=== PATIENT | female | born 1950 | race Caucasian/White ===

== ENCOUNTER 2019-11-19 12:55 | Inpatient (IN) | payer MEDICARE ==
[~2019-11-19] VITALS: Ht 160 cm; Wt 77.1 kg
[2019-11-19] MEDS ORDERED: SODIUM CHLORIDE 0.9% 1000ML 1,000 ML IV STA ×2 (13:04→13:59)
[2019-11-19] MEDS ORDERED: ONDANSETRON HCL INJ 2MG/ML 2ML 2 MG/ML VIAL IV STA (13:04)
[2019-11-19 13:31] LABS: BASOPHILS % 0.2 % (0.0-1.0); EOSINOPHILS % 0.1 % (0.0-6.0); HEMATOCRIT 39.6 % (34.2-44.1); HEMOGLOBIN 13.9 g/dL (12.0-16.0); LYMPHOCYTES # (AUTO) 0.7 (1.0-3.2); LYMPHOCYTES % 5.6 % (18.0-39.1); MEAN CORPUSCULAR HEMOGLOBIN 31.1 pg (28-32); MEAN CORPUSCULAR HGB CONC 35.1 g/dL (31-35); MEAN CORPUSCULAR VOLUME 88.6 fL (81-99); MONOCYTES # (AUTO) 1.1 (0.2-0.8); MONOCYTES % 8.9 % (4.4-11.3); NEUTROPHILS # (AUTO) 10.2 (2.1-6.9); NEUTROPHILS % 84.5 % (38.7-80.0); PLATELET COUNT 220 x10e3/uL (140-360); RED BLOOD COUNT 4.47 x10e6/uL (3.6-5.1); RED CELL DISTRIBUTION WIDTH 11.9 % (11.7-14.4)
[2019-11-19 13:52] LABS: ALBUMIN 3.6 g/dL (3.5-5.0); ALBUMIN/GLOBULIN RATIO 0.9 (0.8-2.0); ANION GAP 20.1 mmol/L (8-16); BILIRUBIN,URINE 2+ (NEGATIVE); CLARITY,URINE SL CLOUDY (CLEAR); COLOR,URINE YELLOW (YELLOW); CREATININE, SERUM 2.31 mg/dL (0.57-1.11); KETONES,URINE NEGATIVE (NEGATIVE); LEUKOCYTE ESTERASE ,URINE 1+ (NEGATIVE); NITRITE,URINE NEGATIVE (NEGATIVE); POTASSIUM 3.1 mmol/L (3.5-5.1); PROTEIN,URINE DIPSTICK 1+ (NEGATIVE); URINE UROBILINOGEN 1 mg/dL (0.2 - 1)
[2019-11-19 13:59] LABS: CREATINE KINASE MB 0.8 ng/mL (0-5.0)
[2019-11-19] MEDS ORDERED: POTASSIUM CHLORIDE 10MEQ/100ML 100 ML IV ONE (14:00)
[2019-11-19] MEDS ORDERED: MORPHINE SULFATE INJ 4 MG/ML INJ 1ML IV PRN (14:12)
[2019-11-19] MEDS ORDERED: MORPHINE SULFATE INJ 4 MG/ML INJ 1ML IV NR (14:15)
[2019-11-19] MEDS ORDERED: MORPHINE SULFATE 2 MG/ML SYR 1ML IV PRN (14:15)
[2019-11-19 14:29] LABS: AMORPHOUS SEDIMENT,URINE MODERATE (FEW); BACTERIA,URINE MODERATE /HPF; EPITHELIAL CELLS,URINE MANY /LPF; TRANSITIONAL EPI CELLS,URINE MODERATE
--- NOTE | 2019-11-19 14:59 | Diagnostic Imaging Report ---
EXAM: CT Abdomen and Pelvis WITHOUT contrast INDICATION: ^epigastric pain COMPARISON: None. TECHNIQUE: Abdomen and pelvis were scanned utilizing a multidetector helical scanner from the lung base to the pubic symphysis without administration of IV contrast. Absence of intravenous contrast decreases sensitivity for detection of focal lesions and vascular pathology. Coronal and sagittal reformations were obtained. Routine protocol was performed. IV CONTRAST: None ORAL CONTRAST: None COMPLICATIONS: None RADIATION DOSE: Total DLP: 447 mGy*cm Estimated effective dose: (DLP x 0.015 x size factor) mSv CTDIvol has been reviewed. It is below the limits set by the Radiation Protocol Committee (RPC). Dose modulation, iterative reconstruction, and/or weight based adjustment of the mA/kV was utilized to reduce the radiation dose to as low as reasonably achievable. FINDINGS: LINES and TUBES: None. LOWER THORAX: Unremarkable HEPATOBILIARY: The liver is enlarged and mildly decreased in density consistent with fatty infiltration. No focal hepatic lesions. No biliary ductal dilation. GALLBLADDER: The gallbladder is distended. There is a small amount of gas within the gallbladder lumen. The gallbladder wall is thickened and measures up to 7 mm in caliber. No identifiable pericholecystic fluid. Possible nitrogen-containing gallstones are present. SPLEEN: No splenomegaly. PANCREAS: No focal masses or ductal dilatation. ADRENALS: No adrenal nodules KIDNEYS/URETERS: No hydronephrosis. Small right renal exophytic low-density lesion, likely a cyst. No stones. GI TRACT: No abnormal distention, wall thickening, or evidence of bowel obstruction. Moderate sigmoid diverticulosis. Appendix is normal. PELVIC ORGANS/BLADDER: The urinary bladder is unremarkable. The uterus is surgically absent. LYMPH NODES: No lymphadenopathy. VESSELS: Scattered arterial calcifications. PERITONEUM / RETROPERITONEUM: No free air or fluid. BONES: No acute osseous abnormality. Multilevel thoracolumbar degenerative change. SOFT TISSUES: Unremarkable. IMPRESSION: Findings worrisome for acute cholecystitis. Surgical consultation is recommended. Right upper quadrant sonography may be obtained to evaluate for the presence of gallstones. Signed by: Prosper Yang MD on 11/19/2019 2:56 PM
[2019-11-19] MEDS ORDERED: POTASSIUM CHLORIDE 20 MEQ TAB CR PO STA (15:22)
--- OUTSIDE RECORDS SUMMARY | 2019-11-19 15:33 | XMS REPORT ---
Author Author [facility] Address Unknown Phone Unavailable Care Team Providers Care Conference Services Coordinator Name Role Phone JOSE ARMANDO NESBITT Unavailable Unavailable Problems This patient has no known problems. Allergies, Adverse Reactions, Alerts This patient has no known allergies or adverse reactions. Medications This patient has no known medications. Results Test Description Test Time Test Comments Text Results Atomic Results Result Comments CT ABDOMEN/PELVIS WO 2019-11-19 14:52:00 [facility] [address] [address] Patient Name: PEPE ELLISON MR #: [id number] : 1950 Age/Sex: 69/F Req #: [id number] Adm Physician: Ordered by: JOSE ARMANDO NESBITT DO Report #: [id number] Location: ER Room/Bed: Procedure: [id number] CT/CT ABDOMEN/PELVIS WO Exam Date: Exam Time: REPORT STATUS: Signed EXAM: CT Abdomen and Pelvis WITHOUT contrast INDICATION: epigastric pain COMPARISON: None. TECHNIQUE: Abdomen and pelvis were scanned utilizing a multidetector helical scanner from the lung base to the pubic symphysis without administration of IV contrast. Absence of intravenous contrast decreases sensitivity for detection of focal lesions and vascular pathology. Coronal and sagittal reformations were obtained. Routine protocol was performed. IV CONTRAST: None ORAL CONTRAST: None COMPLICATIONS: None RADIATION DOSE: Total DLP: 447 mGy*cm Estimated effective dose: (DLP x 0.015 x size factor) mSv CTDIvol has been reviewed. It is below the limits set by the Radiation Protocol Committee (RPC). Dose modulation, iterative reconstruction, and/or weight based adjustment of the mA/kV was utilized to reduce the radiation dose to as low as reasonably achievable. FINDINGS: LINES and TUBES: None. LOWER THORAX: Unremarkable HEPATOBILIARY: The liver is enlarged and mildly decreased in density consistent with fatty infiltration. No focal hepatic lesions. No biliary ductal dilation. GALLBLADDER: The gallbladder is distended. There is a small amount of gas within the gallbladder lumen. The gallbladder wall is thickened and measures up to 7 mm in caliber. No identifiable pericholecystic fluid. Possible nitrogen-containing gallstones are present. SPLEEN: No splenomegaly. PANCREAS: No focal masses or ductal dilatation. ADRENALS: No adrenal nodules KIDNEYS/URETERS: No hydronephrosis. Small right renal exophytic low-density lesion, likely a cyst. No stones. GI TRACT: No abnormal distention, wall thickening, or evidence of bowel obstruction. Moderate sigmoid diverticulosis. Appendix is normal. PELVIC ORGANS/BLADDER: The urinary bladder is unremarkable. The uterus is surgically absent. LYMPH NODES: No lymphadenopathy. VESSELS: Scattered arterial calcifications. PERITONEUM / RETROPERITONEUM: No free air or fluid. BONES: No acute osseous abnormality. Multilevel thoracolumbar degenerative change. SOFT TISSUES: Unremarkable. IMPRESSION: Findings worrisome for acute cholecystitis. Surgical consultation is recommended. Right upper quadrant sonography may be obtained to evaluate for the presence of gallstones. Signed by: Margaret Cohen MD on 11/19/2019 2:56 PM Dictated By: MARGARET COHEN MD [id number] Transcribed By: ZARIA on 11/19/19 [id number] COPY TO: JOSE ARMANDO NESBITT DO
[2019-11-19] MEDS: ONDANSETRON HCL INJ 2MG/ML 2ML 2 MG/ML VIAL IV PRN (15:43)
[2019-11-19] MEDS: SODIUM CHLORIDE 0.9% 1000ML 1,000 ML IV SCH ×2 (15:45→20:14)
[2019-11-19] MEDS ORDERED: GEMFIBROZIL600 MG PO (15:54)
[2019-11-19] MEDS ORDERED: METOPROLOL SUCC25 MG PO (15:54)
[2019-11-19] MEDS ORDERED: LISINOPRIL-HCT1 EACH (15:54)
[2019-11-19] MEDS ORDERED: VERAPAMIL SR180 MG PO (15:54)
[2019-11-19] MEDS ORDERED: ESIDRIX25 MG (15:54)
[2019-11-19 16:21] VITALS: BP 152/72
[2019-11-19 16:22] VITALS: BP 152/72
[2019-11-19 16:30] VITALS: BP 152/72
[2019-11-19] MEDS: PIPER-TAZ 3.375 GM 50 ML IV SCH (16:30)
--- NOTE | 2019-11-19 16:30 | NUR ---
Received patient from ER to room 288. Patient is in stable condition. Oriented to room and policies. Call light within reach. Bed in the lowest position.
[2019-11-19] MEDS ORDERED: METOPROLOL TARTRATE INJ 1 MG/ML VIAL IV PRN (18:30)
[2019-11-19] MEDS ORDERED: ACETAMINOPHEN 1000 MG/100 ML IV PRN (18:30)
[2019-11-19] MEDS: DIPHENHYDRAMINE HCL INJ 50 MG/ML VIAL IV PRN (18:37)
--- NOTE | 2019-11-19 19:14 | NUR ---
Bedside shift report given to oncoming nurse. Patient is resting in bed, no acute distress noted. Call light within reach. Bed in the lowest position.
--- NOTE | 2019-11-19 19:30 | NUR ---
Received bedside report from day nurse. Patient awake and resting in bed, no s/s of distress at this time. Bed locked and in low position, call light placed within reach. Instructed to call for assistance if needed, verbalized understanding. All safety measures in place. Will continue to monitor.
[2019-11-19 20:00] VITALS: BP 120/65
[2019-11-19 21:02] VITALS: BP 120/65
[2019-11-20] VITALS (8 sets, daily range): BP systolic 96–140; BP diastolic 57–69
[2019-11-20] MEDS: PIPER-TAZ 3.375 GM 50 ML IV SCH ×5 (00:13→23:43)
[2019-11-20] MEDS: DIPHENHYDRAMINE HCL INJ 50 MG/ML VIAL IV PRN (00:19)
--- NOTE | 2019-11-20 00:46 | NUR ---
Dr. Quinteros here to see patient. Asked if patient is okay to take PO meds with small sips of water. Patient states that she has not been able to keep anything down since Saturday. Per Dr. Quinteros, get clearance from attending physician.
[2019-11-20] MEDS: SODIUM CHLORIDE 0.9% 1000ML 1,000 ML IV SCH ×3 (04:35→23:13)
[2019-11-20 06:18] LABS: BASOPHILS % 0.2 % (0.0-1.0); EOSINOPHILS % 0.5 % (0.0-6.0); HEMATOCRIT 35.3 % (34.2-44.1); HEMOGLOBIN 11.9 g/dL (12.0-16.0); LYMPHOCYTES # (AUTO) 0.6 (1.0-3.2); LYMPHOCYTES % 6.8 % (18.0-39.1); MEAN CORPUSCULAR HEMOGLOBIN 30.5 pg (28-32); MEAN CORPUSCULAR HGB CONC 33.7 g/dL (31-35); MEAN CORPUSCULAR VOLUME 90.5 fL (81-99); MONOCYTES # (AUTO) 1.3 (0.2-0.8); MONOCYTES % 15.4 % (4.4-11.3); NEUTROPHILS # (AUTO) 6.2 (2.1-6.9); NEUTROPHILS % 76.2 % (38.7-80.0); PLATELET COUNT 185 x10e3/uL (140-360)
--- NOTE | 2019-11-20 06:47 | NUR ---
Bedside shift report given to oncoming nurse. Patient is resting in bed, no acute distress noted. Call light within reach. Bed in the lowest position.
[2019-11-20 06:49] LABS: ALBUMIN 2.8 g/dL (3.5-5.0); ALBUMIN/GLOBULIN RATIO 0.9 (0.8-2.0); ANION GAP 14.2 mmol/L (8-16); CALCIUM 8.9 mg/dL (8.4-10.2); CREATININE, SERUM 2.23 mg/dL (0.57-1.11); POTASSIUM 3.2 mmol/L (3.5-5.1)
[2019-11-20 06:51] LABS: CHOL/HDL RATIO 17.3 (3.0-3.6)
--- NOTE | 2019-11-20 07:07 | NUR ---
Bedside report given to day nurse. Patient awake and resting in bed, no s/s of distress at this time. Bed locked and in low position, call light placed within reach. All safety measures in place.
[2019-11-20 07:13] LABS: THYROID STIMULATING HORMONE 1.547 uIU/mL (0.350-4.940)
[2019-11-20] MEDS: FAMOTIDINE 20 MG/2 ML VIAL IV SCH ×2 (08:00→17:00)
--- NOTE | 2019-11-20 08:24 | NUR ---
Asked MAYELA Blanco if ok to give morning medications with sip of water. Per BUFFER NICKEL, give metoprolol only.
[2019-11-20] MEDS: VERAPAMIL HCL 180 MG TBER PO SCH (08:26)
--- NOTE | 2019-11-20 09:12 | Diagnostic Imaging Report ---
EXAM: Right upper quadrant abdominal ultrasound INDICATION: Pancreatitis COMPARISON: CT abdomen pelvis 11/19/2019 TECHNIQUE: Transverse and longitudinal images of the right upper quadrant abdomen were obtained FINDINGS: Liver: Size: 14.8 cm in the right midclavicular line, normal Appearance: Increased echogenicity, smooth contour Mass: No focal masses Gallbladder: Sludge and stones in the gallbladder. No gallbladder distension, pericholecystic fluid, wall thickening, or reported sonographic Mendoza's sign. Gallbladder wall measures 5 mm. Bile Ducts: Intrahepatic Ducts: No dilatation Extrahepatic Ducts: Common bile duct measures 5 mm Pancreas: Visualized portions of the pancreatic head, neck and proximal body are normal. Kidney: The right kidney measures 9.6 cm without evidence of hydronephrosis or stone. Vessels: Aorta: Visualized portions are normal Inferior Vena Cava: Visualized portions are normal Main Portal Vein: 0.8 cm, normal size with hepatopetal flow. Free Fluid: No ascites or pleural effusion IMPRESSION: Cholelithiasis and sludge in the gallbladder. No specific sonographic evidence of cholecystitis. Hepatic steatosis. Signed by: Herb Carrera MD on 11/20/2019 9:09 AM
[2019-11-20] MEDS: METOPROLOL SUCCINATE 25 MG TAB XL PO SCH ×2 (09:26→17:00)
--- NOTE | 2019-11-20 10:09 | Diagnostic Imaging Report ---
ADDENDUM #1 There is mild fullness of the right renal collecting system without a definite obstruction visualized. There is a slight bend at the ureteropelvic junction. This is incompletely evaluated. However, it was not present on the prior CT. Signed by: Leonardo Norris JR, MD on 11/20/2019 11:33 AM ORIGINAL REPORT TECHNIQUE: MRI of the abdomen and MRCP WITHOUT intravenous contrast. 3-D volume reconstructions were obtained to evaluate the biliary ductal system. INDICATION: ^gall stone pancreatitis ^Y. COMPARISON: CT from 11/20/2019. FINDINGS: ABSENCE OF INTRAVENOUS CONTRAST DECREASES SENSITIVITY FOR DETECTION OF FOCAL LESIONS AND VASCULAR PATHOLOGY. LOWER THORAX: Unremarkable. LIVER: Mild loss of signal in the liver on out of phase imaging. No focal hepatic lesions. BILIARY: There are several small layering gallstones in the gallbladder. The gallbladder is distended with a thickened wall. No biliary ductal dilatation or filling defect. The common bile duct measures 4 mm in diameter. SPLEEN: No splenomegaly. PANCREAS: No focal masses or ductal dilatation. There is some edema and the pancreas. ADRENALS: No adrenal nodules. KIDNEYS/URETERS: No hydronephrosis or solid mass lesions. A simple left renal cyst measures 1 cm. A right upper pole simple renal cyst measures 1.1 cm. No follow-up imaging is recommended. PERITONEUM/RETROPERITONEUM: Trace scattered ascites. LYMPH NODES: No lymphadenopathy. VESSELS: Unremarkable. GI TRACT: No distention or wall thickening. Diverticulum of the second portion of the duodenum. Mild diverticulosis of the sigmoid colon. BONES AND SOFT TISSUES: Unremarkable. IMPRESSION: 1. No choledocholithiasis. 2. The findings in the gallbladder are concerning for acute cholecystitis in the appropriate clinical setting. 3. The edema around the pancreas is concerning for acute interstitial edematous pancreatitis. Signed by: Leonardo Norris JR, MD on 11/20/2019 10:06 AM
[2019-11-20] MEDS ORDERED: POTASSIUM CHLORIDE 20MEQ/100ML 200 ML IV ONE (10:30)
[2019-11-20] MEDS ORDERED: POTASSIUM CHLORIDE 20 MEQ TAB CR PO ONE (10:50)
[2019-11-20] MEDS: ONDANSETRON HCL INJ 2MG/ML 2ML 2 MG/ML VIAL IV PRN (13:53)
[2019-11-20] MEDS: HYDROMORPHONE 1MG/1ML INJ IV PRN (13:53)
--- NOTE | 2019-11-20 19:08 | NUR ---
Bedside shift report given to oncoming nurse. Patient is resting in bed. No acute distress noted, denies pain at this time. Call light within reach. Bed in the lowest position.
--- NOTE | 2019-11-20 19:24 | NUR ---
Received bedside report from day nurse. Patient awake and resting in bed, no s/s of distress at this time. All safety measures in place. Will continue to monitor.
--- NOTE | 2019-11-20 21:24 | Consultation ---
DATE OF CONSULTATION: 11/20/2019 PREOPERATIVE DIAGNOSIS: Abdominal pain. HISTORY OF PRESENT ILLNESS: The patient is a 69-year-old female with a 4-day history of pain in the epigastric region, radiating to the back with severe nausea and vomiting and dehydration. She admits to chills, but no fever, no diarrhea. PAST MEDICAL HISTORY: Significant for hypertension. PAST SURGICAL HISTORY: Significant for , hysterectomy, oophorectomy, appendectomy, and tonsillectomy. ALLERGIES: THE PATIENT IS ALLERGIC TO SULFA. SOCIAL HABITS: She does not smoke or drink. REVIEW OF SYSTEMS: No chest pain or shortness of breath. No cough. PHYSICAL EXAMINATION: VITAL SIGNS: Stable. She is afebrile. GENERAL: She is awake and alert, in moderate discomfort. HEENT: Sclerae anicteric. NECK: Supple. LUNGS: Clear. HEART: Regular rate and rhythm. ABDOMEN: Soft with some guarding and tenderness in the epigastrium with no rebound. EXTREMITIES: No cyanosis or edema. LABORATORY DATA: The patient's white cell count is 8, hemoglobin of 12, and platelet count of 185. Creatinine of 2.2. Liver function tests, elevation of bilirubin of 4.7 with alkaline phosphatase of 97. Lipase of 606. Ultrasound of gallbladder showed a small gallstone with thickened gallbladder wall concerning for cholecystitis. MRCP was negative for common bile duct stone. ASSESSMENT: Gallstone pancreatitis with elevated liver enzymes, possibly passage of bile duct stone. PLAN: Laparoscopic cholecystectomy. Trending liver function panel. Jef Sanchez MD DNAnabelle/MODL /[id number]
[2019-11-21] VITALS (8 sets, daily range): BP systolic 104–154; BP diastolic 57–74
[2019-11-21] MEDS: PIPER-TAZ 3.375 GM 50 ML IV SCH ×4 (05:14→23:22)
[2019-11-21] MEDS: SODIUM CHLORIDE 0.9% 1000ML 1,000 ML IV SCH ×4 (06:20→22:04)
--- NOTE | 2019-11-21 06:54 | NUR ---
Received bedside shift report from night nurse. Patient awake, resting in bed, no acute distress noted at this time. Call light within reach. Bed in the lowest position.
--- NOTE | 2019-11-21 07:06 | NUR ---
Bedside report given to day shift nurse. Patient awake and resting in bed, no s/s of distress at this time. Bed locked and in low position, call light placed within reach. All safety measures in place.
[2019-11-21 07:31] LABS: BASOPHILS % 0.3 % (0.0-1.0); EOSINOPHILS # (AUTO) 0.1 (0.0-0.4); HEMATOCRIT 32.5 % (34.2-44.1); HEMOGLOBIN 10.6 g/dL (12.0-16.0); LYMPHOCYTES # (AUTO) 0.9 (1.0-3.2); MEAN CORPUSCULAR HEMOGLOBIN 30.5 pg (28-32); MEAN CORPUSCULAR HGB CONC 32.6 g/dL (31-35); MEAN CORPUSCULAR VOLUME 93.4 fL (81-99); MONOCYTES # (AUTO) 1.2 (0.2-0.8); MONOCYTES % 14.9 % (4.4-11.3); NEUTROPHILS # (AUTO) 5.6 (2.1-6.9); NEUTROPHILS % 72.2 % (38.7-80.0); PLATELET COUNT 202 x10e3/uL (140-360); RED BLOOD COUNT 3.48 x10e6/uL (3.6-5.1); RED CELL DISTRIBUTION WIDTH 12.6 % (11.7-14.4)
[2019-11-21 07:56] LABS: ANION GAP 13.9 mmol/L (8-16); CALCIUM 9.1 mg/dL (8.4-10.2); CREATININE, SERUM 1.81 mg/dL (0.57-1.11); MAGNESIUM 1.9 MG/DL (1.3-2.1); POTASSIUM 3.9 mmol/L (3.5-5.1)
[2019-11-21] MEDS: VERAPAMIL HCL 180 MG TBER PO SCH (08:06)
[2019-11-21] MEDS: FAMOTIDINE 20 MG/2 ML VIAL IV SCH ×2 (08:06→16:13)
[2019-11-21] MEDS: METOPROLOL SUCCINATE 25 MG TAB XL PO SCH ×2 (08:06→15:52)
--- NOTE | 2019-11-21 08:14 | NUR ---
Lab called with critical lab result of 59. Patient is not diabetic. Assessed BG at this time is 64, patient is asymptomatic. Will continue to monitor.
--- NOTE | 2019-11-21 10:16 | NUR ---
OFF UNIT FOR PROCEDURE AT THIS TIME.
[2019-11-21] MEDS ORDERED: BUPIVACAINE HCL 0.5% INJ 30 ML VIAL INJ ONE (10:52)
[2019-11-21] MEDS ORDERED: DEXAMETHASONE SOD PHOS INJ 4 MG/ML VIAL ONE (11:11)
[2019-11-21] MEDS ORDERED: LIDOCAINE HCL 2% LOCAL INJ 5 ML SDV VIAL INJ ONE (11:11)
[2019-11-21] MEDS ORDERED: ONDANSETRON HCL INJ 2MG/ML 2ML 2 MG/ML VIAL ONE (11:11)
[2019-11-21] MEDS ORDERED: ROCURONIUM BROMIDE 10 MG/ML 5ML VIAL ONE (11:11)
[2019-11-21] MEDS ORDERED: SEVOFLURANE INHAL SOLN 250 ML PEN BTL ONE (11:11)
[2019-11-21] MEDS ORDERED: PROPOFOL IV EMULSION 10 MG/ML 20 ML VIAL ONE (11:11)
[2019-11-21] MEDS ORDERED: EPHEDRINE SULFATE INJ 50 MG/ML VIAL ONE (11:11)
[2019-11-21] MEDS ORDERED: SUGAMMADEX SODIUM 200 MG/2 ML VIAL IV ONE (11:21)
[2019-11-21] MEDS ORDERED: MIDAZOLAM HCL 2 MG/2 ML VIAL ONE (11:47)
[2019-11-21] MEDS ORDERED: FENTANYL CITRATE/PF 100MCG/2 ML INJ ONE (11:47)
--- NOTE | 2019-11-21 12:07 | Operative Report ---
DATE OF PROCEDURE: 11/21/2019 SURGEON: Jef Sanchez MD PREOPERATIVE DIAGNOSIS: Cholecystitis. POSTOPERATIVE DIAGNOSIS: Cholecystitis. OPERATIVE PROCEDURE: Laparoscopic cholecystectomy. BOAT LOADER: None. ANESTHESIA: General. INDICATIONS: A 69-year-old female with history of epigastric pain, gallstone, and pancreatitis. MRCP was negative. The patient consented for laparoscopic cholecystectomy. Attendant risks have been discussed. PROCEDURE FINDING: Acute to chronic cholecystitis DESCRIPTION OF PROCEDURE: The patient was brought to the OR intubated. The abdomen was prepped and draped in sterile fashion. A supraumbilical incision was made and a 10 mm port inserted. Insufflation then began under direct vision. Other port sites were then placed in the midepigastric and right upper quadrant. Gallbladder acutely inflamed and distended. Fundus was retracted in cephalad direction. The neck of the gallbladder retracted laterally. With blunt dissection, we isolated cystic artery, triple clipped, and divided. Cystic duct was also isolated, triple clipped, and leaving 3 clips on the cystic duct stump. The gallbladder detached from the liver and placed in an Endopouch and retrieved out of the peritoneal cavity, which was then irrigated. Hemostasis achieved. All ports removed under direct vision. Fascia was closed with 0 Vicryl. Skin was then closed with subcuticular stitch. The patient was extubated and transported to recovery room. ESTIMATED BLOOD LOSS: 20 mL. Jef Sanchez MD DNL/MODL /[id number]
[2019-11-21] MEDS ORDERED: HYDROMORPHONE 1MG/1ML INJ ONE (12:10)
[2019-11-21] MEDS: ONDANSETRON HCL INJ 2MG/ML 2ML 2 MG/ML VIAL IV PRN ×2 (15:01→20:13)
[2019-11-21] MEDS: HYDROMORPHONE 1MG/1ML INJ IV PRN ×2 (15:01→20:13)
--- NOTE | 2019-11-21 15:40 | NUR ---
Nutrition Screen Note RD Recommendation for Physician: - Rec advance diet as tolerated to low fat diet Plan of Care: RD following, monitoring for tolerance and adequacy, diet education Nutrition reason for involvement: Nutrition Risk Trigger MST Primary Diagnose(s): Gallstone pancreatitis with elevated liver enzymes PMH: hypertension Ht: 63in Wt: 170.2lb BMI: 30.1kg/m2 IBW: 115lb +/- 10% RD Assessment: (11/20) Chart reviewed. Labs and meds reviewed. 69yo F, who was admitted for gallstone pancreatitis. Pt underwent laparoscopic cholecystectomy today. Visited pt in the room. Pt reported some discomfort from surgery. No complains of nausea or vomiting. Pt has not started on any liquid yet. UBW ~160lbs. 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 RD provided brief education on low fat diet. All questions have been answered. Current Diet: clear liquid diet Malnutrition Evaluation (11/20) The patient does not meet criteria for a specified degree of malnutrition at this time. Will re-evaluate at follow-up as appropriate. Diet Education Needs Assessment: Diet education indicated, pt was agreeable. Learner(s): Pt Barriers: None indicated. Cultural/Language Modifications: Pt speaks Kiswahili. Readiness: Acceptance Method: Handouts, explanation Topics: Low fat diet Understanding/Compliance: Pt verbalized understanding of the diet restriction. Nutrition Care Level: low Signed: Brianna Levy, , RD, LD
--- NOTE | 2019-11-21 19:20 | NUR ---
Bedside shift report given to oncoming nurse. Patient is resting in bed. No acute distress noted. Call light within reach. Bed in the lowest position.
[2019-11-22] VITALS (8 sets, daily range): BP systolic 115–172; BP diastolic 63–100
[2019-11-22] MEDS: PIPER-TAZ 3.375 GM 50 ML IV SCH ×4 (05:08→23:26)
[2019-11-22] MEDS: SODIUM CHLORIDE 0.9% 1000ML 1,000 ML IV SCH ×4 (05:08→22:50)
[2019-11-22 06:30] LABS: BASOPHILS % 0.2 % (0.0-1.0); HEMATOCRIT 31.3 % (34.2-44.1); HEMOGLOBIN 10.3 g/dL (12.0-16.0); LYMPHOCYTES # (AUTO) 0.8 (1.0-3.2); LYMPHOCYTES % 8.4 % (18.0-39.1); MEAN CORPUSCULAR HEMOGLOBIN 30.7 pg (28-32); MEAN CORPUSCULAR HGB CONC 32.9 g/dL (31-35); MEAN CORPUSCULAR VOLUME 93.4 fL (81-99); MONOCYTES # (AUTO) 1.2 (0.2-0.8); MONOCYTES % 11.9 % (4.4-11.3); NEUTROPHILS # (AUTO) 7.5 (2.1-6.9); NEUTROPHILS % 77.7 % (38.7-80.0); PLATELET COUNT 197 x10e3/uL (140-360); RED BLOOD COUNT 3.35 x10e6/uL (3.6-5.1); RED CELL DISTRIBUTION WIDTH 12.9 % (11.7-14.4)
[2019-11-22 06:51] LABS: ALBUMIN 2.4 g/dL (3.5-5.0); ALBUMIN/GLOBULIN RATIO 0.7 (0.8-2.0); ANION GAP 13.1 mmol/L (8-16); CALCIUM 8.9 mg/dL (8.4-10.2); CREATININE, SERUM 1.43 mg/dL (0.57-1.11); MAGNESIUM 1.7 MG/DL (1.3-2.1); POTASSIUM 4.1 mmol/L (3.5-5.1)
--- NOTE | 2019-11-22 07:54 | NUR ---
Received bedside shift report form off going night nurse. Patient is in stable condition. Bed in lowest position and locked. Call light within reach. Explained if needing any help with anything to page. Patient verbalized understanding.
[2019-11-22] MEDS: FAMOTIDINE 20 MG/2 ML VIAL IV SCH ×2 (08:26→17:56)
[2019-11-22] MEDS: VERAPAMIL HCL 180 MG TBER PO SCH (08:27)
[2019-11-22] MEDS: METOPROLOL SUCCINATE 25 MG TAB XL PO SCH ×2 (08:27→17:57)
[2019-11-22] MEDS: ONDANSETRON HCL INJ 2MG/ML 2ML 2 MG/ML VIAL IV PRN (09:39)
[2019-11-22] MEDS: HYDROMORPHONE 1MG/1ML INJ IV PRN ×2 (09:39→19:50)
[2019-11-22] MEDS: GEMFIBROZIL 600 MG TAB PO SCH (17:28)
--- NOTE | 2019-11-22 19:10 | NUR ---
Pt visited in room during nursing rounds. Patient alert and oriented x3. Ambulatory in room prn. Pt has intermittent abdominal pain and being medicated accordingly. On IVF (NS at 125ml/hr) and IV antibiotics as scheduled. Call barber within reach. Will monitor closely.
--- NOTE | 2019-11-22 19:31 | NUR ---
Bedside shift report given to the on coming night nurse. Patient in stable condition. No distress noted. Bed low and locked. Call light within reach. Fluids offered and at bedside.
[2019-11-23 00:43] VITALS: BP 114/58
[2019-11-23 04:37] VITALS: BP 135/70
[2019-11-23 05:51] LABS: BASOPHILS # (AUTO) 0.1 (0.0-0.1); BASOPHILS % 0.5 % (0.0-1.0); EOSINOPHILS # (AUTO) 0.2 (0.0-0.4); EOSINOPHILS % 1.9 % (0.0-6.0); HEMATOCRIT 29.8 % (34.2-44.1); HEMOGLOBIN 9.8 g/dL (12.0-16.0); LYMPHOCYTES # (AUTO) 1.6 (1.0-3.2); LYMPHOCYTES % 15.3 % (18.0-39.1); MEAN CORPUSCULAR HGB CONC 32.9 g/dL (31-35); MEAN CORPUSCULAR VOLUME 94.3 fL (81-99); MONOCYTES # (AUTO) 1.5 (0.2-0.8); MONOCYTES % 14.4 % (4.4-11.3); NEUTROPHILS # (AUTO) 6.7 (2.1-6.9); NEUTROPHILS % 64.1 % (38.7-80.0); PLATELET COUNT 211 x10e3/uL (140-360); RED BLOOD COUNT 3.16 x10e6/uL (3.6-5.1); RED CELL DISTRIBUTION WIDTH 13.2 % (11.7-14.4)
[2019-11-23] MEDS: PIPER-TAZ 3.375 GM 50 ML IV SCH ×2 (06:05→12:00)
[2019-11-23 06:12] LABS: ALBUMIN 2.3 g/dL (3.5-5.0); ALBUMIN/GLOBULIN RATIO 0.7 (0.8-2.0); ANION GAP 10.8 mmol/L (8-16); CALCIUM 8.4 mg/dL (8.4-10.2); CREATININE, SERUM 1.12 mg/dL (0.57-1.11); POTASSIUM 3.8 mmol/L (3.5-5.1)
[2019-11-23] MEDS: SODIUM CHLORIDE 0.9% 1000ML 1,000 ML IV SCH (07:54)
[2019-11-23 08:07] VITALS: BP 141/89
--- NOTE | 2019-11-23 08:20 | NUR ---
BEDSIDE SHIFT REPORT RECEIVED FROM THE HORSE FARM MANAGER RN. EDUCATED PT ABOUT FALL PRECAUTIONS. INSTRUCTED PT TO USE CALL LIGHT FOR ALL THE NEEDS. PT VERBALIZED UNDERSTANDING. CALL LIGHT WITH IN EASY REACH. BED IS LOW AND LOCKED. SIDE RAILS X2. PT DENIES NEEDS AT THIS TIME.
--- NOTE | 2019-11-23 08:25 | NUR ---
RFA 22 G IV REMOVED. TIP INTACT. DRESSING APPLIED. PT REFUSED TO START NEW IV AT THIS TIME.
[2019-11-23] MEDS: FAMOTIDINE 20 MG/2 ML VIAL IV SCH (09:00)
--- NOTE | 2019-11-23 09:00 | NUR ---
JEREMÍAS PIZARRO NURSING PROGRAM COORDINATOR AND INFORMED PT HAS NO IV ACCESS. OKAY PER JUAREZ PEDRO.
[2019-11-23] MEDS: METOPROLOL SUCCINATE 25 MG TAB XL PO SCH (09:04)
[2019-11-23] MEDS: GEMFIBROZIL 600 MG TAB PO SCH (09:04)
[2019-11-23] MEDS: VERAPAMIL HCL 180 MG TBER PO SCH (09:04)
[2019-11-23 09:59] VITALS: BP 141/89
[2019-11-23 11:43] VITALS: BP 164/74
[2019-11-23] MEDS ORDERED: ZOFRAN4 MG PO (11:48)
[2019-11-23] MEDS ORDERED: ONDANSETRON HCL 4 MG ORAL DISINTEGRATING TAB PO PRN (12:30)
--- NOTE | 2019-11-23 12:30 | NUR ---
DAE TO D/C PT PER DR. Rochelle SOL, DR. SEAY AND JUAREZ PEDRO.
--- NOTE | 2019-11-23 13:00 | NUR ---
IMM LETTER EXPLAINED TO PT. PT VERBALIZED UNDERSTANDING. IMM LETTER SIGNED. COPY TO PT AND COPY TO CHART. PT READY TO DC HOME W AT THE BEDSIDE
--- NOTE | 2019-11-23 13:10 | Discharge Summary ---
PERTINENT HISTORY AND PHYSICAL FINDINGS/CHIEF COMPLAINT: Abdominal pain, nausea and vomiting. HISTORY OF PRESENT ILLNESS: This is a 69-year-old female, who admitted with complaints of right upper quadrant and left upper quadrant achy abdominal pain that began the Saturday prior to arrival. The pain continued to worsen and radiated around to her back. The patient had associated nausea and vomiting. By Saturday, she states that she had a chill and Saturday she developed diarrhea more than 10 times. PAST MEDICAL HISTORY: Hypertension, atrophied kidney. PAST SURGICAL HISTORY: Appendectomy, right wrist ganglion, hysterectomy, GST x2, x2. FAMILY HISTORY: Mother, father and grandfather had heart attack. Grandmother had CVA. SOCIAL HISTORY: Occasional alcohol. ALLERGIES: SULFA. ADMITTING DIAGNOSES: 1. Cholelithiasis. 2. Pancreatitis, likely due to cholelithiasis. 3. Hyponatremia. 4. Acute kidney injury versus chronic kidney disease. 5. Hyperlipidemia. 6. Controlled hypertension. 7. Hypokalemia. DISCHARGE DIAGNOSES: 1. Gallstone pancreatitis with transaminitis. 2. Acute cholecystitis, status post cholecystectomy on 11/27/2019, by Dr. Sanchez. 3. Acute kidney injury versus chronic kidney disease, atrophic kidney with unknown creatinine baseline. 4. Controlled hypertension. 5. Hyperlipidemia. 6. Hypoxia, improved. On admission, WBCs 12.03, hemoglobin 13.9, hematocrit 39.6, platelets 220. Sodium 125, potassium 3.1, chloride 84, CO2 of 24, BUN 24, anion gap 20.1, creatinine 2.31, estimated GFR 21. Glucose 106, calcium 10, total bilirubin 6.3, AST 141, ALT 132, alkaline phosphatase 109. Cardiac biomarkers were negative. Lipase 1099. Urinalysis showed 1+ protein, trace amount of blood, 2+ bilirubin, 1+ leukocyte esterase, 6-10 rbc's, 6-10 wbc's, moderate amount of transitional epithelial cells, moderate amount of amorphous sediment and moderate amount of urine bacteria. Final urine culture showed no growth after 36-[address] of the abdomen and pelvis showed findings worrisome for acute cholecystitis. Gallbladder ultrasound showed cholelithiasis and sludge in the gallbladder. No specific sonographic evidence of cholecystitis, hepatic steatosis. MRCP done on November 19 showed no choledocholithiasis. Findings in the gallbladder concerning for acute cholecystitis. Edema around the pancreas, concerning for acute interstitial edematous pancreatitis. As the patient progressed perioperatively, her renal function improved. Her LFTs improved. Her lipase went from 606-206. Her TSH was 1.547. Her hemoglobin A1c 5.1%. Today on the day of discharge, sodium 138, potassium 3.8, chloride 110, CO2 of 21, BUN 18, anion gap 10.8, creatinine 1.12, GFR 48. Total bilirubin 2.4, AST 61, ALT 76. WBC 10.39, hemoglobin 9.8, hematocrit 29.8, platelets 211. The patient is to be discharged home on a cardiac diet. No abdominal pain today. No nausea or vomiting. She is passing gas. She had a bowel movement today. She has poor appetite with some mild nausea and simply feels lethargic. The patient is encouraged to drink plenty of fluids. Activity level as tolerated. GAUTAM Sanchez, spoke with Dr. Sanchez with Surgery and Dr. Quinteros with Gastroenterology were both consults on the case and agree that the patient is ready to be discharged home. Hepatitis panel still pending. The patient is to follow up with her PCP Dr. Briones in 1-2 weeks and follow up with Dr. Sanchez and Neli as directed. Dictated by Antonio Hernandez NP MD ZECHARIAH KwongP/AMYL /[id number]
--- NOTE | 2019-11-23 13:15 | NUR ---
PT DISCHARGED HOME SAFELY WITH FAMILY MEMBER. PT ESCORTED VIA WHEEL CHAIR TO THE PRIVATE AUTO AT THE FRONT ENTRANCE. TELE AND IV REMOVED. TIP INTACT. DRESSING APPLIED. RX GIVEN. PT DENIED FURTHER NEEDS.
[2019-11-23] MEDS ORDERED: FAMOTIDINE 20 MG TAB PO SCH (16:30)
== END 2019-11-23 13:16 | disposition home or self-care (01) | DRG 417 ==
LOC: ER 12:55 → ERHOLD 14:04 → MED/SURG3 15:56
PROVIDERS: ADMIT Internal Medicine; ATTEND Internal Medicine
PROC: 0FT44ZZ Resection of Gallbladder, Percutaneous Endoscopic Approach (ICD-10-PCS; principal; 2019-11-21 10:28)
DX: K80.12 Calculus of gallbladder with acute and chronic cholecystitis without obstruction (principal); K85.10 Biliary acute pancreatitis without necrosis or infection; E87.1 Hypo-osmolality and hyponatremia; N17.9 Acute kidney failure, unspecified; E78.5 Hyperlipidemia, unspecified; R09.02 Hypoxemia; E87.6 Hypokalemia; I12.9 Hypertensive chronic kidney disease with stage 1 through stage 4 chronic kidney disease, or unspecified chronic kidney disease; N18.3 Chronic kidney disease, stage 3 (moderate)
CPT/HCPCS: 36415; 74176; 74181; 76705; 80048; 80053; 80061; 81001; 82550; 82553; 82948; 83036; 83690; 83735; 84100; 84443; 84484; 85025; 87086; 88304; 93005; 99284; J1100; J1170; J1200; J2001; J2250; J2270; J2405; J2543; J3010; J3480; J7030

== ENCOUNTER 2022-09-13 02:20 | Emergency (ER) | payer MEDICARE ==
[~2022-09-13] VITALS: Ht 312.4 cm; Wt 77.1 kg
[~2022-09-13 02:20] MED LIST: ESIDRIX25 MG; GEMFIBROZIL600 MG PO; LISINOPRIL-HCT1 EACH; METOPROLOL SUCC25 MG PO; VERAPAMIL SR180 MG PO; ZOFRAN4 MG PO
[2022-09-13] MEDS ORDERED: SODIUM CHLORIDE 0.9% 1000ML 1,000 ML IV STA (02:22)
[2022-09-13] MEDS ORDERED: FAMOTIDINE 20 MG/2 ML VIAL IV STA (02:41)
[2022-09-13] MEDS ORDERED: ONDANSETRON HCL INJ 2MG/ML 2ML 2 MG/ML VIAL IV STA (02:43)
[2022-09-13] MEDS ORDERED: Morphine 4mg INJECTION 4 MG/ML INJ IV ONE (02:45)
[2022-09-13 03:10] LABS: BASOPHILS # (AUTO) 0.1 (0.0-0.1); BASOPHILS % 0.2 % (0.0-1.0); EOSINOPHILS # (AUTO) 0.1 (0.0-0.4); EOSINOPHILS % 0.7 % (0.0-6.0); HEMATOCRIT 53.1 % (34.2-44.1); LYMPHOCYTES # (AUTO) 1.6 (1.0-3.2); MEAN CORPUSCULAR VOLUME 96.9 fL (81-99); MONOCYTES # (AUTO) 0.9 (0.2-0.8); MONOCYTES % 4.3 % (4.4-11.3); NEUTROPHILS # (AUTO) 17.6 (2.1-6.9); PLATELET COUNT 339 x10e3/uL (140-360); RED BLOOD COUNT 5.48 x10e6/uL (3.6-5.1); RED CELL DISTRIBUTION WIDTH 11.5 % (11.7-14.4)
[2022-09-13 03:31] LABS: ALANINE AMINOTRANSFERASE 12 IU/L (0-55); ALBUMIN 3.8 g/dL (3.5-5.0); ALKALINE PHOSPHATASE 58 IU/L (40-150); ANION GAP 22.6 mmol/L (8-16); BLOOD UREA NITROGEN 13 mg/dL (7-26); BUN/CREATININE RATIO 11 (6-25); CALCIUM 9.4 mg/dL (8.4-10.2); CARBON DIOXIDE 20 mmol/L (22-29); CHLORIDE 96 mmol/L (98-107); CREATINE KINASE 53 IU/L (29-168); CREATININE, SERUM 1.19 mg/dL (0.57-1.11); GLUCOSE 172 mg/dL (74-118); POTASSIUM 3.6 mmol/L (3.5-5.1); SODIUM 135 mmol/L (136-145)
[2022-09-13] MEDS ORDERED: IOPAMIDOL 370 MG/ML 100 ML INFUS..BTL INJ ONE (03:53)
[2022-09-13] MEDS ORDERED: ONDANSETRON ODT4 MG PO (05:44)
[2022-09-13] MEDS ORDERED: LOMOTIL TABLET1 EACH PO (05:44)
[2022-09-13 05:45] VITALS: BP 110/74
== END 2022-09-13 05:54 | disposition home or self-care (01) ==
LOC: ER 02:27
DX: R10.13 Epigastric pain (principal); R11.2 Nausea with vomiting, unspecified; R19.7 Diarrhea, unspecified; R03.1 Nonspecific low blood-pressure reading; I10 Essential (primary) hypertension; Z20.822 Contact with and (suspected) exposure to COVID-19; R94.31 Abnormal electrocardiogram [ECG] [EKG]
CPT/HCPCS: 36415; 74176; 80053; 82550; 82553; 83690; 84484; 85025; 93005; 99284; J7030; Q9967; U0002

== ENCOUNTER 2024-12-25 14:24 | Observation (INO) | payer MEDICARE ==
[~2024-12-25] VITALS: Ht 160 cm; Wt 68.0 kg
[~2024-12-25 14:24] MED LIST changes: +LOMOTIL TABLET1 EACH PO; +ONDANSETRON ODT4 MG PO
[2024-12-25 14:55] LABS: BASOPHILS % 0.5 % (0.0-1.0); EOSINOPHILS # (AUTO) 0.2 (0.0-0.4); EOSINOPHILS % 3.2 % (0.0-6.0); HEMATOCRIT 35.4 % (34.2-44.1); LYMPHOCYTES # (AUTO) 1.8 (1.0-3.2); MEAN CORPUSCULAR HEMOGLOBIN 30.7 pg (28-32); MEAN CORPUSCULAR HGB CONC 33.9 g/dL (31-35); MEAN CORPUSCULAR VOLUME 90.5 fL (81-99); MONOCYTES # (AUTO) 0.9 (0.2-0.8); MONOCYTES % 14.6 % (4.4-11.3); NEUTROPHILS # (AUTO) 3.1 (2.1-6.9); NEUTROPHILS % 51.2 % (38.7-80.0); PLATELET COUNT 309 x10e3/uL (140-360); RED BLOOD COUNT 3.91 x10e6/uL (3.6-5.1); RED CELL DISTRIBUTION WIDTH 12.2 % (11.7-14.4); WHITE BLOOD COUNT 6.03 x10e3/uL (4.8-10.8)
[2024-12-25 15:18] LABS: INR 0.92; PROTHROMBIN TIME 12.9 seconds (11.9-14.5)
[2024-12-25 15:19] LABS: PARTIAL THROMBOPLASTIN TIME 30.1 seconds (23.8-35.5)
[2024-12-25 15:29] LABS: ALBUMIN 3.8 g/dL (3.5-5.0); ANION GAP 17.6 mmol/L (8-16); BILIRUBIN,TOTAL 0.7 mg/dL (0.2-1.2); CALCIUM 9.8 mg/dL (8.4-10.2); CREATININE, SERUM 0.87 mg/dL (0.57-1.11); MAGNESIUM 1.8 MG/DL (1.3-2.1); POTASSIUM 3.6 mmol/L (3.5-5.1); TOTAL PROTEIN 7.5 g/dL (6.5-8.1)
[2024-12-25 15:34] LABS: TROPONIN I 0.001 ng/mL (0-0.300)
[2024-12-25] MEDS: ASPIRIN 81 MG CHEW TAB PO ONE (16:36)
[2024-12-25] MEDS: SODIUM CHLORIDE 0.9% 500ML 500 ML IV ONE (16:36)
[2024-12-25] MEDS ORDERED: ONDANSETRON HCL INJ 2MG/ML 2ML 2 MG/ML VIAL IV PRN (17:00)
[2024-12-25 19:45] VITALS: PULSE 58; RESP 17; TEMP 98.9
[2024-12-25 20:10] VITALS: BP 147/83; PULSE 54; RESP 20; TEMP 97.9; O2SAT 98
[2024-12-25 21:00] VITALS: BP 147/83; PULSE 54; RESP 20; TEMP 97.9; O2SAT 98
[2024-12-25] MEDS ORDERED: METOPROLOL SUCC25 MG PO (22:18)
[2024-12-25] MEDS ORDERED: VERAPAMIL ER180 MG PO (22:18)
[2024-12-25] MEDS ORDERED: LISINOPRIL40 MG PO (22:18)
[2024-12-25] MEDS ORDERED: HYDROCHLOROTHIA25 MG PO (22:18)
[2024-12-26] VITALS (7 sets, daily range): BP systolic 82–173; BP diastolic 57–99; PULSE 52–91; RESP 18–20; TEMP 97.6–98.6; O2SAT 95–100
[2024-12-26 00:20] LABS: TROPONIN I 0.006 ng/mL (0-0.300)
[2024-12-26] MEDS ORDERED: POLYETHYLENE GLYCOL 3350 17 GM PACK PO PRN (02:15)
[2024-12-26] MEDS ORDERED: ACETAMINOPHEN 325 MG TAB PO PRN (02:15)
[2024-12-26] MEDS ORDERED: HYDRALAZINE HCL 20 MG/ML VIAL IV PRN (02:15)
[2024-12-26 05:28] LABS: BASOPHILS % 0.4 % (0.0-1.0); EOSINOPHILS # (AUTO) 0.2 (0.0-0.4); EOSINOPHILS % 2.8 % (0.0-6.0); HEMATOCRIT 33.4 % (34.2-44.1); HEMOGLOBIN 11.4 g/dL (12.0-16.0); LYMPHOCYTES # (AUTO) 2.1 (1.0-3.2); LYMPHOCYTES % 29.2 % (18.0-39.1); MEAN CORPUSCULAR HEMOGLOBIN 31.5 pg (28-32); MEAN CORPUSCULAR HGB CONC 34.1 g/dL (31-35); MEAN CORPUSCULAR VOLUME 92.3 fL (81-99); MONOCYTES # (AUTO) 0.9 (0.2-0.8); MONOCYTES % 12.6 % (4.4-11.3); NEUTROPHILS # (AUTO) 3.9 (2.1-6.9); NEUTROPHILS % 54.4 % (38.7-80.0); PLATELET COUNT 266 x10e3/uL (140-360); RED BLOOD COUNT 3.62 x10e6/uL (3.6-5.1); RED CELL DISTRIBUTION WIDTH 11.9 % (11.7-14.4); WHITE BLOOD COUNT 7.08 x10e3/uL (4.8-10.8)
[2024-12-26 06:11] LABS: PHOSPHORUS 3.3 MG/DL (2.3-4.7)
[2024-12-26 06:15] LABS: TROPONIN I 0.006 ng/mL (0-0.300)
[2024-12-26 06:16] LABS: ALBUMIN 3.2 g/dL (3.5-5.0); ALBUMIN/GLOBULIN RATIO 1.1 (0.8-2.0); ANION GAP 16.2 mmol/L (8-16); BILIRUBIN,TOTAL 0.3 mg/dL (0.2-1.2); CALCIUM 8.8 mg/dL (8.4-10.2); CHOL/HDL RATIO 4.8 (3.0-3.6); CREATININE, SERUM 0.74 mg/dL (0.57-1.11); TOTAL PROTEIN 6.2 g/dL (6.5-8.1)
[2024-12-26 06:19] LABS: POTASSIUM 3.2 mmol/L (3.5-5.1)
[2024-12-26 06:30] LABS: FREE T4 (FREE THYROXINE) 1.03 ng/dL (0.8-1.8); THYROID STIMULATING HORMONE 1.341 uIU/mL (0.350-4.940)
[2024-12-26] MEDS: CLOPIDOGREL BISULFATE 75 MG TAB PO SCH (09:52)
[2024-12-26] MEDS: POTASSIUM CHLORIDE 10MEQ EA PO ONE (09:53)
[2024-12-26] MEDS: ASPIRIN 81 MG ENTERIC COATED PO SCH (09:54)
[2024-12-26] MEDS: DOCUSATE SODIUM 100 MG CAP PO SCH (09:54)
[2024-12-26] MEDS: LISINOPRIL 20 MG TAB PO SCH (09:55)
[2024-12-26] MEDS: VERAPAMIL HCL 180 MG TBER PO SCH (09:55)
[2024-12-26] MEDS: GEMFIBROZIL 600 MG TAB PO SCH (09:56)
[2024-12-26] MEDS: METOPROLOL SUCCINATE 25 MG TAB XL PO SCH (09:56)
[2024-12-26] MEDS ORDERED: PLAVIX75 MG PO (18:49)
[2024-12-26] MEDS ORDERED: ASPIRIN EC81 MG PO (18:49)
== END 2024-12-26 19:37 | disposition home or self-care (01) ==
LOC: ER 14:41 → ERHOLD 16:57 → MED/SURG2 20:30
PROVIDERS: ADMIT Internal Medicine; ATTEND Internal Medicine
DX: G45.9 Transient cerebral ischemic attack, unspecified (principal); H53.462 Homonymous bilateral field defects, left side; R00.1 Bradycardia, unspecified; I10 Essential (primary) hypertension; I12.9 Hypertensive chronic kidney disease with stage 1 through stage 4 chronic kidney disease, or unspecified chronic kidney disease; N18.9 Chronic kidney disease, unspecified; E87.1 Hypo-osmolality and hyponatremia; E78.5 Hyperlipidemia, unspecified; Z82.49 Family history of ischemic heart disease and other diseases of the circulatory system
CPT/HCPCS: 36415 ×2; 70450; 70544; 70551; 71045; 80053 ×2; 80061; 82550 ×2; 83735; 83880; 84100; 84439; 84443; 84484 ×2; 85025 ×2; 85610; 85730; 93005; 93880; 97116; 97161; 99284; G0378 ×2; J7040